=== PATIENT | male | born 1990 | race African-American/Black ===

== ENCOUNTER 2023-12-27 16:38 | Emergency (ER) | payer OTHER, SELFPAY ==
[2023-12-27 16:48] VITALS: BP 155/103; PULSE 70; RESP 16; TEMP 36.8; O2SAT 99; BMI 27.9
--- NOTE | 2023-12-27 16:52 | ED.GENADULT ---
HPI - General Adult General Chief complaint: Ear Stated complaint: cotton from qtip in ear Time Seen by Provider: 12/27/23 16:47 Source: patient Mode of arrival: Ambulatory History of Present Illness HPI narrative: 33-year-old male here for evaluation of a Q-tip in his left ear canal. Review of Systems ENT Ears, Nose, Mouth, and Throat: Reports system reviewed and no additional complaints, except as documented Patient History Social History Smoking Status: Never smoker Smoking Status: Never smoker alcohol intake frequency: 0-2 drinks per day Substance Use Type: does not use Exam Initial Vital Signs Initial Vital Signs: Vital Signs Temperature 98.2 F 12/27/23 16:48 Pulse Rate 70 12/27/23 16:48 Respiratory Rate 16 12/27/23 16:48 Blood Pressure 155/103 H 12/27/23 16:48 Pulse Oximetry 99 12/27/23 16:48 Oxygen Delivery Method Room Air 12/27/23 16:48 HENMT Ears: other (Cotton in left ear canal) Procedures Foreign Body EAR Location: ear canal (L) Foreign Body Suspected: other (Cotton tip) TM intact pre-procedure: unable to visualize Foreign Body Removed: yes Foreign Body Removal Technique: forceps Tympanic Membrane Intact Post Procedure: Yes Patient Tolerated Procedure: Well and No complications Course Vital Signs Vital signs: Vital Signs - 8 hr 12/27/23 16:48 Temperature 98.2 F Pulse Rate 70 Respiratory Rate 16 Blood Pressure 155/103 H Pulse Oximetry 99 Oxygen Delivery Method Room Air Medical Decision Making MDM Narrative Medical decision making narrative: Foreign body easily removed from left auditory canal. After removal the external auditory canal is normal. Tympanic membrane is normal. No signs of rupture. Discharge Plan Departure Patient Disposition: Home Clinical Impression: Foreign body in left ear Instructions: DI for Removal of Foreign Body From Ear Activity Restrictions/Additional Instructions: Return to emergency department for new symptoms. Referrals: ProviderOlu [Primary Care Provider] - Stand Alone Forms: Patient Portal/API
== END 2023-12-27 17:00 | disposition home or self-care (01) ==
PROVIDERS: Emergency Provider Emergency Medicine
DX: T16.2XXA Foreign body in left ear, initial encounter (principal)
CPT/HCPCS: 69200; 99281; 99282